=== PATIENT | female | born 1970 | race Caucasian/White ===

== ENCOUNTER 2017-07-30 11:24 | Emergency (ER) | payer MEDICAID ==
[2017-07-30] MEDS: traMADol 50 MG TAB PO (14:29)
== END 2017-07-30 16:48 | disposition home or self-care (01) ==
LOC: FTE 11:24
DX: S33.9XXA Sprain of unspecified parts of lumbar spine and pelvis, initial encounter (principal); S36.92XA Contusion of unspecified intra-abdominal organ, initial encounter; V49.50XA Passenger injured in collision with unspecified motor vehicles in traffic accident, initial encounter
CPT/HCPCS: 72100; 72170; 76705; 99284-25